=== PATIENT | male | born 1960 | race Caucasian/White ===

== ENCOUNTER 2023-06-04 06:28 | Day surgery (SDC) | payer BC, SELFPAY ==
[2023-06-04] VITALS (11 sets, daily range): BP systolic 109–146; BP diastolic 72–96; BMI 37.7
[2023-06-04] MEDS: TYLENOL 1000 MG PO (09:56)
[2023-06-04] MEDS: CELEBREX 200 MG PO (09:56)
[2023-06-04] MEDS: NORMOSOL-R 1000 IV (09:57)
[2023-06-04 10:02] LABS: Glucose - Point of Care 157 mg/dl (70-99)
[2023-06-04 13:22] LABS: Glucose - Point of Care 173 mg/dl (70-99)
== END 2023-06-04 15:53 | disposition home or self-care (01) ==
LOC: SDS 06:28
PROVIDERS: ATTENDING PHYSICIAN Specialist
DX: M75.122 Complete rotator cuff tear or rupture of left shoulder, not specified as traumatic (principal)
CPT/HCPCS: 29827; 82962; C1713

== ENCOUNTER → 2023-12-03 07:53 | Outpatient (REF) | payer MEDICARE, OTHER, SELFPAY | LOC: RCS 07:53 | PROVIDERS: ATTENDING PHYSICIAN Internal Medicine Cardiovascular Disease; FAMILY PHYSICIAN Family Medicine | DX: I48.0 Paroxysmal atrial fibrillation (principal); I35.0 Nonrheumatic aortic (valve) stenosis | CPT/HCPCS: 93306 ==

== ENCOUNTER → 2024-11-10 08:03 | Outpatient (REF) | payer MEDICARE, OTHER, SELFPAY | LOC: HWRCS 08:03 | PROVIDERS: ATTENDING PHYSICIAN Internal Medicine Cardiovascular Disease; FAMILY PHYSICIAN Family Medicine | DX: I48.0 Paroxysmal atrial fibrillation (principal); R06.02 Shortness of breath | CPT/HCPCS: 93306 ==

== ENCOUNTER → 2025-04-26 08:56 | Outpatient (REF) | payer MEDICARE, OTHER, SELFPAY ==
[2025-04-26 10:19] LABS: Hematocrit 52.4 % (39.0-52.0); Hemoglobin 17.7 g/dL (13.0-18.0); Mean Corp Hgb Conc. 33.8 g/dL (33.0-37.0); Mean Corpuscular Volume 86.8 fL (80.0-94.0); Nucleated Red Blood Cells % 0 % (-); Red Cell Dist. Width 13.4 % (11.5-14.5)
[2025-04-26 11:08] LABS: ALT (SGPT) 36 U/L (0-50); AST (SGOT) 34 U/L (17-59); Albumin 4.6 g/dl (3.5-5.0); Alkaline Phosphatase 78 U/L (38-126); Blood Urea Nitrogen 16 mg/dl (9-20); Calcium 9.8 mg/dl (8.4-10.2); Carbon Dioxide 28 mmol/L (22-30); Chloride 98 mmol/L (98-107); Glucose 102 mg/dl (70-99); Potassium 4.8 mmol/L (3.5-5.1); Sodium 135 mmol/L (135-145); Total Protein 7.4 g/dl (6.3-8.2); eGFR > 60.00
[2025-04-26 11:26] LABS: Platelet Count 177 10^3/uL (130-400)
== END ==
LOC: SDSPAT 08:56
PROVIDERS: ATTENDING PHYSICIAN Internal Medicine Cardiovascular Disease; FAMILY PHYSICIAN Family Medicine; OTHER PHYSICIAN Internal Medicine Cardiovascular Disease
DX: I48.0 Paroxysmal atrial fibrillation (principal)
CPT/HCPCS: 36415; 80053; 85025; 86850; 86900; 86901